=== PATIENT | female | born 1995 | race Caucasian/White ===

== ENCOUNTER 2019-01-03 20:02 | Emergency (ER) | payer OTHER ==
[~2019-01-03] VITALS: Ht 154.9 cm; Wt 63.7 kg
[~2019-01-03 20:02] MED LIST: DOCU-144 PO; ONDA4TAB14 PO; POLY17PO6 PO
[2019-01-03 20:08] VITALS: Ht 154.9 cm; Wt 63.7 kg
[2019-01-03] MEDS ORDERED: ONDANSETRON (ODT) 4 MG TAB ODT STA (20:42)
[2019-01-03] MEDS ORDERED: MAGNESIUM CITRATE 300 ML BTL PO ONE (21:00)
--- NOTE | 2019-01-03 22:19 | ERD ---
ER Documentation Chief Complaint Chief Complaint CONSTIPATION X3DAYS WITH N/V HPI Patient is a 23-year-old female, past medical history of constipation, presents the ER for concerns of not having a bowel movement for 3 days. Patient reports an episode of vomiting earlier today. She states she has a history of cons tipation in the past and often has hard stools. Patient states she has occasional has abdominal cramps however she has no abdominal cramps at this time. Patient has no fevers or chills. Patient has no dysuria, frequency, urgency, hematuria or rectal bleeding. ROS All systems reviewed and are negative except as per history of present illness. Medications Home Meds Active Scripts Ondansetron (Ondansetron Odt) 4 Mg Tab.rapdis, 4 MG PO Q6H PRN for NAUSEA AND/OR VOMITING, #10 TAB Prov:DARRYL LIND PA-C 01/03/19 Polyethylene Glycol* (Miralax*) 17 Gm Powd.pack, 17 GM PO DAILY, #7 Prov:DARRYL LIND PA-C 01/03/19 Docusate Sodium* (Colace*) 100 Mg Capsule, 100 MG PO TID, #30 CAP Prov:DARRYL LIND PA-C 01/03/19 Allergies Allergies: Coded Allergies: No Known Allergy (Unverified , 01/03/19) PMhx/Soc Medical and Surgical Hx: pt denies Medical Hx, pt denies Surgical Hx Hx Alcohol Use: Yes (socially) Hx Substance Use: No Hx Tobacco Use: No Smoking Status: Never smoker FmHx Family History: No diabetes Physical Exam Vitals Vital Signs Date Temp Pulse Resp B/P (MAP) Pulse Ox O2 O2 Flow FiO2 Time Delivery Rate 01/03/19 98.4 86 19 139/79 98 20:08 (99) Physical Exam GENERAL: Well-developed, well-nourished female. Appears in no acute distress. HEAD: Normocephalic, atraumatic. EYES: Pupils are equally reactive bilaterally. EOMs grossly intact. No conjunctival erythema. NECK: Supple. No meningismus. Normal range of motion of the neck. LUNG: Clear to auscultation bilaterally. No rhonchi, wheezing, rales or coarse breath sounds. HEART: Regular rate and rhythm. No murmurs, rubs or gallops. ABDOMEN: No scars, ecchymosis or rashes noted. Soft, nontender, and nondistended. Positive bowel sounds in all four quadrants. No rebound tenderness, no guarding. (-) McBurney's point tenderness. No CVA tenderness. EXTREMITIES: Equal pulses bilaterally. No peripheral clubbing, cyanosis or edema. No unilateral leg swelling. NEUROLOGIC: Alert and oriented. Moving all four extremities without any difficulty. Normal speech. Steady gait. SKIN: Normal color. Warm and dry. No rashes or lesions. Results 24 hrs Laboratory Tests Test 01/03/19 21:39 01/03/19 21:57 POC Beta HCG, Qualitative NEGATIVE Bedside Urine pH (LAB) 7.0 Bedside Urine Protein (LAB) Negative Bedside Urine Glucose (UA) Negative Bedside Urine Ketones (LAB) Negative Bedside Urine Blood Trace-lysed Bedside Urine Nitrite (LAB) Negative Bedside Urine Leukocyte Esterase (L Trace Current Medications Medications Dose Sig/Fran Start Time Status Last (Trade) Ordered Route PRN Stop Time Admin Dose Reason Admin Ondansetron 4 mg ONCE STAT 01/03/19 DC 01/03/19 HCl (Zofran ODT 20:42 20:50 Odt) 01/03/19 20:43 Magnesium 150 ml ONCE ONCE 01/03/19 DC 01/03/19 Citrate PO 21:00 20:50 (Citroma) 01/03/19 21:01 Procedures/MDM ED COURSE: The patient was stable throughout ED course. I kept the patient and/or family informed of laboratory and diagnostic imaging results throughout the ED course. DIAGNOSTIC IMAGING: Read by radiologist. MR #: [id number] DOS: 01/03/192041 Ordering MD: DARRYL LIND PA-C Location: [facility] Room/Bed: PROCEDURE: XR Abdomen. CLINICAL INDICATION: Constipation TECHNIQUE: An AP supine abdominal x-ray was obtained. 2 images. COMPARISON: None. FINDINGS: The bowel gas pattern is normal. The fecal burden is low. There are no visible masses or abnormal calcifications. There is no gross evidence of free intraperitoneal air. There are no air-fluid levels. The osseus structures are unremarkable. IMPRESSION: 1. Unremarkable abdomen radiograph. RPTAT:AAJJ Physician Mike Date Time Electronically viewed and signed by Physician Mike on 01/03/2019 22:28 GW/ CC: DARRYL LIND PA-C [id number] PROCEDURES: None. MEDICATIONS GIVEN: Mag citrate Patient tolerated medication well with no adverse reactions. MEDICAL DECISION MAKING: This is a 23-year-old female presents the ER for concerns of constipation for last 3 days. And one episode of vomiting today.. Vital signs were reviewed. Patient is afebrile. Abdominal exam was benign. Patient had no rebound or guarding. Patient was given Zofran and mag citrate. No episodes of vomiting throughout the ED course. KUB was obtained and was unremarkable. Patient was given mag citrate. She did not have a bowel movement while here in the ER. Patient was advised she likely will have a bowel movement at home. At this time with the patient presentation most consistent with history of constipation. Differential diagnosis included but was not limited to acute coronary syndrome, AAA, mesenteric ischemia, lower lobe pneumonia, DKA, bowel perforation, cholecystitis, choledocholithiasis, ascending cholangitis, hepatic abscess, pancreatitis, PUD, gastritis, GERD, splenic rupture, diverticulitis, UTI, pyelonephritis, nephrolithiasis, appendicitis, bowel obstruction, , ectopic , PID, ovarian torsion or tubo-ovarian abscess. PRESCRIPTIONS: Colace, Zofran, MiraLAX Patient advised to take MiraLAX only as needed. DISCHARGE: At this time, patient is stable for discharge and outpatient management. I have instructed the patient to follow-up with his/her primary care physician in 1-2 days. I have instructed the patient to promptly return to the ER at any time for any new or worsening symptoms including increased pain, nausea, vomiting, diarrhea, fever, weakness or LOC. The patient and/or family expressed understanding of and agreement with this plan. All questions were answered. Home care instructions were provided. Disclaimer: Inadvertent spelling and grammatical errors are likely due to EHR/dictation software use and do not reflect on the overall quality of patient care. Also, please note that the electronic time recorded on this note does not necessarily reflect the actual time of the patient encounter. Departure Diagnosis: Primary Impression: Constipation Constipation type: unspecified constipation type Qualified Codes: K59.00 - Constipation, unspecified Condition: Fair Patient Instructions: Constipation (Adult) Referrals: [facility] YOU HAVE RECEIVED A MEDICAL SCREENING EXAM AND THE RESULTS INDICATE THAT YOU DO NOT HAVE A CONDITION THAT REQUIRES URGENT TREATMENT IN THE EMERGENCY DEPARTMENT. FURTHER EVALUATION AND TREATMENT OF YOUR CONDITION CAN WAIT UNTIL YOU ARE SEEN IN YOUR DOCTORS OFFICE WITHIN THE NEXT 1-2 DAYS. IT IS YOUR RESPONSIBILITY TO MAKE AN APPOINTMENT FOR FOLOW-UP CARE. IF YOU HAVE A PRIMARY DOCTOR --you should call your primary doctor and schedule an appointment IF YOU DO NOT HAVE A PRIMARY DOCTOR YOU CAN CALL OUR PHYSICIAN REFERRAL HOTLINE AT IF YOU CAN NOT AFFORD TO SEE A PHYSICIAN YOU CAN CHOSE FROM THE FOLLOWING [facility] [address] [facility]. [facility] [address] [facility] [facility] [address] [facility] [address] [facility] [address] [facility]. [facility] [address] [facility]. [facility] YOU HAVE RECEIVED A MEDICAL SCREENING EXAM AND THE RESULTS INDICATE THAT YOU DO NOT HAVE A CONDITION THAT REQUIRES URGENT TREATMENT IN THE EMERGENCY DEPARTMENT. FURTHER EVALUATION AND TREATMENT OF YOUR CONDITION CAN WAIT UNTIL YOU ARE SEEN IN YOUR DOCTORS OFFICE WITHIN THE NEXT 1-2 DAYS. IT IS YOUR RESPONSIBILITY TO MAKE AN APPOINTMENT FOR FOLOW-UP CARE. IF YOU HAVE A PRIMARY DOCTOR --you should call your primary doctor and schedule and appointment IF YOU DO NOT HAVE A PRIMARY DOCTOR YOU CAN CALL OUR PHYSICIAN REFERRAL HOTLINE AT . IF YOU CAN NOT AFFORD TO SEE A PHYSICIAN YOU CAN CHOSE FROM THE FOLLOWING [facility] INSTITUTIONS: [facility] [address] [place] [address] [facility] [address] [place] [address] [facility] [address] [place] [address] Additional Instructions: Call your primary care doctor TOMORROW for an appointment during the next 1-2 days.See the doctor sooner or return here if your condition worsens before your appointment time. DARRYL LIND PA-C Jan 03, 2019 22:18
[2019-01-03 23:09] VITALS: BP 115/65; PULSE 72; RESP 18
== END 2019-01-03 23:10 | disposition home or self-care (01) ==
LOC: FTE 20:02
DX: K59.00 Constipation, unspecified (principal); R11.10 Vomiting, unspecified
CPT/HCPCS: 74018; 81003; 81025; Z7502; Z7610